=== PATIENT | male | born 1985 | race Caucasian/White ===

== ENCOUNTER 2021-11-18 09:59 | Emergency (ER) | payer OTHER ==
[2021-11-18 10:08] VITALS: BP 141/100; PULSE 79; TEMP 99; BMI 27.0
== END 2021-11-18 14:02 | disposition home or self-care (01) ==
LOC: FER 09:59
DX: I82.409 Acute embolism and thrombosis of unspecified deep veins of unspecified lower extremity (principal)
CPT/HCPCS: 93970-TC; 99284-25

== ENCOUNTER 2023-07-01 10:24 | Emergency (ER) | payer BC, OTHER ==
[2023-07-01 10:43] VITALS: BP 122/76; PULSE 90; RESP 18; TEMP 97.5; BMI 26.3
[2023-07-01] MEDS ORDERED: IBUPROFEN 400 MG TABLET (FP) PO ONE ×2 (10:50→10:55)
== END 2023-07-01 12:45 | disposition home or self-care (01) ==
LOC: FER 10:24
DX: N50.89 Other specified disorders of the male genital organs (principal); N50.82 Scrotal pain
CPT/HCPCS: 36415; 76870-TC; 81003; 87086; 87491; 87591; 99284-25